=== PATIENT | female | born 1995 | race Caucasian/White ===

== ENCOUNTER → 2016-08-04 | Outpatient (CLI) | payer BC ==
[~2016-08-04] MED LIST: AMOX500C PO; MOTR200T40 PO; PRENTAB40 PO
[2016-08-04 19:49] LABS: BASO % 0.5 % (0.0-1.0); EOS # 0.1 K/mm3 (0.0-0.50); EOS % 0.8 % (0.0-3.0); LARGE UNSTAINED CELL # 0.2 K/mm3 (0.0-0.4); LARGE UNSTAINED CELL % 2.5 % (0.0-4.0); LYMPH # 3.4 K/mm3 (1.5-6.5); LYMPH % 34.6 % (24.0-44.0); MEAN CORPUSCULAR HEMOGLOBIN 27.9 pg (27.0-33.0); MEAN CORPUSCULAR HGB CONC 32.5 g/dl (32.0-36.5); MEAN CORPUSCULAR VOLUME 85.9 fl (80.0-96.0); MONO # 0.5 K/mm3 (0.0-0.8); MONO % 4.6 % (0.0-5.0); NEUTROPHILS # 5.7 K/mm3 (1.8-7.7); NEUTROPHILS % 57.1 % (36.0-66.0); PLATELET COUNT, AUTOMATED 252 k/mm3 (150-450); RED CELL DISTRIBUTION WIDTH 12.9 % (11.5-14.5); WHITE BLOOD COUNT 9.9 K/mm3 (4.0-10.0)
[2016-08-04 20:04] LABS: ALBUMIN 4.4 GM/DL (3.2-5.2); ALBUMIN/GLOBULIN RATIO 1.42 (1.00-1.93); ALKALINE PHOSPHATASE 88 U/L (45-117); ALT/SGPT 19 U/L (12-78); ANION GAP 10 MEQ/L (8-16); AST/SGOT 14 U/L (15-37); BILIRUBIN,TOTAL 0.3 MG/DL (0.2-1.0); BLOOD UREA NITROGEN 9 MG/DL (7-18); CARBON DIOXIDE LEVEL 27 MEQ/L (21-32); CHLORIDE LEVEL 104 MEQ/L (98-107); CREATININE FOR GFR 0.83 MG/DL (0.55-1.02); GLOMERULAR FILTRATION RATE > 60.0 (>60); GLUCOSE, FASTING 77 MG/DL (70-105); POTASSIUM SERUM 3.8 MEQ/L (3.5-5.1); SODIUM LEVEL 141 MEQ/L (136-145); TOTAL PROTEIN 7.5 GM/DL (6.4-8.2)
== END ==
LOC: M WUC 16:58
PROVIDERS: ATTEND Physician Assistant
DX: R10.816 Epigastric abdominal tenderness (principal)

== ENCOUNTER → 2016-08-05 | Outpatient (CLI) | payer BC ==
--- NOTE | 2016-08-05 15:57 | REP ---
Clinical: Acute right upper quadrant abdominal pain. Technique: Rivas scale ultrasound using curved array transducer. Findings: The liver and pancreas are normal in contour, size, and echogenicity without focal hepatic or pancreatic lesions identified. The gallbladder is normal without gallstones, wall thickening or pericholecystic fluid. No biliary ductal dilatation is appreciated, and the common bile duct measures 3.2 mm diameter. The right kidney is normal in reniform shape without hydronephrosis and measures 10.0 x 7.0 x 3.9 cm. No ascites. Visualized portions of the abdominal aorta normal. Impression: Normal right upper quadrant and gallbladder abdominal ultrasound. Signed by Marquis Fox MD 08/05/2016 03:49 P
== END ==
LOC: M RAD 15:19
PROVIDERS: ATTEND Physician Assistant
DX: R10.11 Right upper quadrant pain (principal)

== ENCOUNTER → 2016-09-30 | Outpatient (REF) | payer BC ==
[~2016-09-30] MED LIST changes: -MOTR200T40 PO; +MOTR200T44 PO
== END ==
LOC: M LAB REF 16:33
PROVIDERS: ATTEND Physician Assistant
DX: R30.0 Dysuria (principal)

== ENCOUNTER → 2017-11-18 | Outpatient (REF) | payer BC ==
[2017-11-18 13:02] LABS: HEMATOCRIT 39.9 % (36.0-47.0); HEMOGLOBIN 12.8 g/dl (12.0-15.5); MEAN CORPUSCULAR HEMOGLOBIN 26.5 pg (27.0-33.0); MEAN CORPUSCULAR HGB CONC 32.1 g/dl (32.0-36.5); MEAN CORPUSCULAR VOLUME 82.6 fl (80.0-96.0); PLATELET COUNT, AUTOMATED 252 10^3/uL (150-450); RED BLOOD COUNT 4.83 10^6/uL (4.00-5.40); RED CELL DISTRIBUTION WIDTH 15.1 % (11.5-14.5); WHITE BLOOD COUNT 8.5 10^3/uL (4.0-10.0)
[2017-11-18 13:54] LABS: HBsAg Prenatal NEGATIVE (NEGATIVE); RUBELLA IgG QUALITATIVE IMMUNE (IMMUNE)
[2017-11-18 13:58] LABS: HCG, SERUM QUANTITATIVE 942 MIU/ML
[2017-11-18 14:22] LABS: HEPATITIS C VIRUS ABY INDEX < 0.0 INDEX (<0.8)
[2017-11-18 14:23] LABS: HIV 1&2 SCREEN CENTAUR NEGATIVE (NEGATIVE)
[2017-11-18 14:34] LABS: CHLAMYDIA DNA AMPLIFICATION NEGATIVE (NEGATIVE); GC DNA AMPLIFICATION NEGATIVE (NEGATIVE)
== END ==
LOC: M LAB REF 12:49
DX: O36.80X0 Pregnancy with inconclusive fetal viability, not applicable or unspecified (principal)
CPT/HCPCS: 86762

== ENCOUNTER 2018-04-10 20:44 | Outpatient (CLI) | payer BC ==
[2018-04-10] MEDS: ACETAMINOPHEN 500 MG TAB PO (21:41)
[2018-04-10 21:43] LABS: APPEARANCE, URINE HAZY (CLEAR); BACTERIA, URINE AUTO 1+ (NEGATIVE); BILIRUBIN, URINE AUTO NEGATIVE (NEGATIVE); BLOOD, URINE BLOOD NEGATIVE (NEGATIVE); COLOR, URINE YELLOW (YELLOW); GLUCOSE, URINE (UA) AUTO NEGATIVE (NEGATIVE); KETONE, URINE AUTO NEGATIVE (NEGATIVE); LEUKOCYTE ESTERASE, URINE AUTO TRACE (NEGATIVE); MUCUS, URINE SMALL (NEGATIVE); NITRITE, URINE AUTO NEGATIVE (NEGATIVE); PROTEIN, URINE AUTO NEGATIVE (NEGATIVE); RBC, URINE AUTO 2 /HPF (0-3); SPECIFIC GRAVITY URINE AUTO 1.014 (1.002-1.035); SQUAMOUS EPITHELIAL CELL UR AU 1 /HPF (0-6); UROBILINOGEN, URINE AUTO 0.2 mg/dL (0.0-2.0); WBC, URINE AUTO 4 /HPF (0-3)
[2018-04-10] MEDS: diphenhydrAMINE 25 MG CAP PO (22:15)
== END 2018-04-10 22:30 | disposition home or self-care (01) ==
LOC: M LDO 20:44
DX: O47.02 False labor before 37 completed weeks of gestation, second trimester (principal); O26.892 Other specified pregnancy related conditions, second trimester; R10.9 Unspecified abdominal pain; Z3A.24 24 weeks gestation of pregnancy
CPT/HCPCS: G0463

== ENCOUNTER → 2018-05-06 | Outpatient (CLI) | payer BC, OTHER ==
[2018-05-06 15:23] LABS: HEMATOCRIT 30.3 % (36.0-47.0); HEMOGLOBIN 9.2 g/dl (12.0-15.5); MEAN CORPUSCULAR HEMOGLOBIN 24.9 pg (27.0-33.0); MEAN CORPUSCULAR HGB CONC 30.4 g/dl (32.0-36.5); MEAN CORPUSCULAR VOLUME 81.9 fl (80.0-96.0); PLATELET COUNT, AUTOMATED 184 10^3/uL (150-450); RED CELL DISTRIBUTION WIDTH 14.7 % (11.5-14.5); WHITE BLOOD COUNT 12.1 10^3/uL (4.0-10.0)
[2018-05-06 16:21] LABS: GLUCOSE CHALLENGE TEST 1 HOUR 98 MG/DL (LESS THAN 140)
== END ==
LOC: M WUC 08:47
DX: Z34.82 Encounter for supervision of other normal pregnancy, second trimester (principal); Z36.89 Encounter for other specified antenatal screening
CPT/HCPCS: 82950

== ENCOUNTER → 2018-06-22 | Outpatient (REF) | payer OTHER ==
[~2018-06-22] MED LIST changes: +COLA100C5 PO; +IBUP-1114 PO; +MAPA500T17 PO; +OXYC1TAB23 PO; +PRENTAB9 PO; +TUMS500C PO
== END ==
LOC: M LAB REF 13:09
PROVIDERS: ATTEND Advanced Practice Midwife
DX: Z36.89 Encounter for other specified antenatal screening (principal)

== ENCOUNTER 2018-07-15 04:57 | Inpatient (IN) | payer OTHER ==
[2018-07-15 06:08] LABS: HEMATOCRIT 34.4 % (36.0-47.0); HEMOGLOBIN 10.5 g/dl (12.0-15.5); MEAN CORPUSCULAR HEMOGLOBIN 23.2 pg (27.0-33.0); MEAN CORPUSCULAR HGB CONC 30.5 g/dl (32.0-36.5); MEAN CORPUSCULAR VOLUME 76.1 fl (80.0-96.0); PLATELET COUNT, AUTOMATED 189 10^3/uL (150-450); RED BLOOD COUNT 4.52 10^6/uL (4.00-5.40); RED CELL DISTRIBUTION WIDTH 18.1 % (11.5-14.5); WHITE BLOOD COUNT 11.1 10^3/uL (4.0-10.0)
[2018-07-15] MEDS: LR 1,000 ML IV ×2 (06:10→07:23)
[2018-07-15] MEDS ORDERED: ONDANSETRON 4MG/2ML VIAL (J2405) As Ordered (07:15)
[2018-07-15] MEDS ORDERED: dexameTHASONE 4 MG/ML 1ML VIAL (J1100) As Ordered (07:15)
[2018-07-15] MEDS ORDERED: KETOROLAC 60 MG/2 ML VIAL (J1885) As Ordered (07:15)
[2018-07-15] MEDS ORDERED: OXYTOCIN INJ 10 UNITS/ML VIAL (J2590) As Ordered ×3 (07:15→08:26)
[2018-07-15] MEDS ORDERED: fentaNYL 100 MCG/2 ML INJECTION (J3010) As Ordered (07:18)
[2018-07-15] MEDS ORDERED: MORPHINE PRES-FREE INJ 10 MG/10 ML VIAL (J2274) As Ordered (07:18)
[2018-07-15] MEDS ORDERED: BUPIVACAINE/DEXTROSE 0.75% 2 ML AMP As Ordered (07:20)
[2018-07-15] MEDS: BICITRA 30ML SOLN UDC PO (07:23)
[2018-07-15] MEDS ORDERED: NALOXONE INJ 0.4 MG/1 ML VIAL (J2310) IV ×2 (07:37)
[2018-07-15] MEDS ORDERED: NALBUPHINE HCL 10 MG/ML AMP (J2300) IV ×2 (07:37→09:15)
[2018-07-15] MEDS ORDERED: METOCLOPRAMIDE INJ 10MG/2ML VIAL (J2765) IV (07:37)
[2018-07-15] MEDS ORDERED: ONDANSETRON 4MG/2ML VIAL (J2405) IV ×3 (07:37→09:15)
[2018-07-15] MEDS ORDERED: ePHEDrine SULFATE 25 MG/5 ML(5MG/ML) SYRINGE As Ordered (07:48)
[2018-07-15] MEDS: OXYTOCIN DRIP 30 UNITS in APPROPRIATE DILUENT 1 EA IV (08:15)
[2018-07-15 08:30] LABS: CORD GAS ABE A -4.2; CORD GAS HCO3 A 23.1 MEQ/L; CORD GAS PCO2 A 50.2 mmHg; CORD GAS PH A 7.281 UNITS; CORD GAS SBC A 20.4 MEQ/L; CORD GAS TCO2 A 24.7 MEQ/L
[2018-07-15 08:32] LABS: CORD GAS ABE V -3.9; CORD GAS HCO3 V 22.3 MEQ/L; CORD GAS O2 SAT V 57.7 %; CORD GAS PCO2 V 44.1 mmHg; CORD GAS PH V 7.321 UNITS; CORD GAS PO2 V 25.3 mmHg; CORD GAS SBC V 20.3 MEQ/L; CORD GAS TCO2 V 23.6 MEQ/L
[2018-07-15] MEDS ORDERED: MOM 30ML SUSPENSION UDC PO (08:45)
[2018-07-15] MEDS ORDERED: NORCO, ANEXSIA 5/325MG TABLET (HYDROcodone/ACETAMINOPHEN) PO (08:45)
[2018-07-15] MEDS ORDERED: PERCOCET 5MG/325MG TAB PO (09:15)
[2018-07-15] MEDS ORDERED: MEPERIDINE INJ 25 MG/ML VIAL (J2175) IV (09:15)
[2018-07-15] MEDS ORDERED: HYDROMORPHONE HCL 0.5 MG/ 0.5 ML SYRINGE (J1170 PER 1) IV (09:15)
[2018-07-15] MEDS ORDERED: fentaNYL 100 MCG/2 ML INJECTION (J3010) IV (09:15)
[2018-07-15] MEDS: PRENATAL VITAMINS CHEWABLE TABLET PO (13:40)
[2018-07-15] MEDS: DOCUSATE SODIUM 100 MG CAP PO ×2 (13:41→21:17)
[2018-07-15] MEDS: RHOGAM 300 MCG (1500 IU) INJ (J2790) IM (15:09)
[2018-07-15] MEDS: MEASLES,MUMPS,RUBELLA VACCINE INJ (MMR-II) (90707) SC (15:10)
[2018-07-15] MEDS: NORCO, ANEXSIA 5/325MG TABLET (HYDROcodone/ACETAMINOPHEN) PO (21:25)
[2018-07-16 06:47] LABS: HEMATOCRIT 28.4 % (36.0-47.0); HEMOGLOBIN 8.7 g/dl (12.0-15.5); MEAN CORPUSCULAR HEMOGLOBIN 23.6 pg (27.0-33.0); MEAN CORPUSCULAR HGB CONC 30.6 g/dl (32.0-36.5); MEAN CORPUSCULAR VOLUME 77.2 fl (80.0-96.0); PLATELET COUNT, AUTOMATED 153 10^3/uL (150-450); RED BLOOD COUNT 3.68 10^6/uL (4.00-5.40); RED CELL DISTRIBUTION WIDTH 18.6 % (11.5-14.5); WHITE BLOOD COUNT 12.8 10^3/uL (4.0-10.0)
[2018-07-16] MEDS: DOCUSATE SODIUM 100 MG CAP PO (08:06)
[2018-07-16] MEDS: PRENATAL VITAMINS CHEWABLE TABLET PO (08:06)
[2018-07-16] MEDS: NORCO, ANEXSIA 5/325MG TABLET (HYDROcodone/ACETAMINOPHEN) PO ×3 (08:07→16:30)
[2018-07-16] MEDS: INFLUENZA QUADRIVALENT PF VACCINE 0.5ML SYRINGE (90686) IM (08:09)
[2018-07-16] MEDS: IBUPROFEN 800 MG TAB PO (16:30)
== END 2018-07-16 18:30 | disposition home or self-care (01) | DRG 540 ==
LOC: M LDI 04:57 → M OBS 10:46
PROC: 10D00Z1 Extraction of Products of Conception, Low, Open Approach (ICD-10-PCS; principal; 2018-07-15 07:29)
DX: O34.211 Maternal care for low transverse scar from previous cesarean delivery (principal); Z37.0 Single live birth; Z3A.39 39 weeks gestation of pregnancy